=== PATIENT | female | born 1990 | race African-American/Black ===

== ENCOUNTER 2016-07-31 11:46 | Emergency (ER) | payer OTHER ==
[2016-07-31 11:41] LABS: BASOPHIL% 0.5 % (0-2.5); EOSINOPHIL% 0.2 % (0.0-7.0); HEMATOCRIT 42.7 % (35.0-45.0); HEMOGLOBIN 13.5 gm/dL (12.0-16.0); LYMPHOCYTE# 1.8 X10e3 (1.0-3.5); LYMPHOCYTE% 18.5 % (17.0-45.0); MEAN CELL VOLUME 84.6 FL (83-96); MEAN CORPUSCULAR HEMOGLOBIN 26.7 PG (28-34); MEAN CORPUSCULAR HGB CONC 31.5 g/dL (30-36); MEAN PLATELET VOLUME 7.7 FL (6.5-11.5); MONOCYTE# 0.7 X10e3 (0-1.0); MONOCYTE% 6.7 % (3.0-12.0); NEUTROPHIL# 7.4 X10e3 (1.5-7.1); NEUTROPHIL% 74.1 % (40-75); PLATELET COUNT 355 X10e3 (140-420); RED BLOOD COUNT 5.05 X10e (3.90-5.30); RED CELL DISTRIBUTION WIDTH 15.4 % (11.0-15.5)
[2016-07-31 11:42] LABS: DIFF IND NO
[2016-07-31 12:07] LABS: BUN/CREATININE RATIO 14.28; CALCIUM SERUM 9.3 mg/dL (8.4-10.2); CREATININE SERUM 0.7 mg/dL (0.6-1.4); GLOM FILT RATE Estimated 121.3 mL/min (>60); POTASSIUM 3.9 mmol/L (3.5-5.1)
== END 2016-07-31 11:50 | disposition home or self-care (01) ==
LOC: CFTX 11:46
PROVIDERS: Physician Assistant
DX: L30.9 Dermatitis, unspecified (principal); Z87.891 Personal history of nicotine dependence
CPT/HCPCS: 36415; 80048; 85025; 96361; 96365; 96375; 99284; J0696; J1100

== ENCOUNTER 2016-08-16 09:51 | Emergency (ER) | payer OTHER | END 2016-08-16 10:35 | disposition home or self-care (01) | LOC: CED 09:51 | DX: L30.9 Dermatitis, unspecified (principal) | CPT/HCPCS: 96372; 99283; J3301 ==